=== PATIENT | male | born 1940 | race Caucasian/White ===

== ENCOUNTER 2022-11-02 01:20 | Emergency (ER) | payer MEDICARE ==
[~2022-11-02] VITALS: Ht 172.7 cm; Wt 71.6 kg
--- NOTE | 2022-11-02 01:54 | ED Respiratory ---
General Chief Complaint: Respiratory Problems Stated Complaint: RESP DISTRESS History of Present Illness Date Seen by Provider: Nov 02, 2022 Time Seen by Provider: 01:21 Initial Comments 82-year-old male with PMH of COPD/ex chronic smoker who stopped 20 years ago/CAD/CABG, is brought in by EMS with complaints of COPD exacerbation resulting in shortness of breath. Patient was given a DuoNeb by EMS and EMS and Solu-Medrol and his oxygen saturation improved from high 80s to 98%, also placed on 5 L of oxygen in the ambulance. Patient is not on home oxygen. Patient has had a few episodes of exacerbation of COPD in the past few months. Patient has also had a cough with runny nose and nasal congestion as per his over the past couple of weeks. Denies fever and chills, chest pain, palpitations, abdominal pain, nausea and vomiting. No known sick contacts. When pt first in ER, pt has breathlessness after speaking one sentence. Allergies and Home Medications Allergies Coded Allergies: No Known Drug Allergies (Unverified , 11/02/22) Patient Home Medication List Home Medication List Reviewed: Yes Review of Systems Review of Systems Constitutional: no symptoms reported EENTM: nose congestion Respiratory: cough, short of breath, wheezing Cardiovascular: no symptoms reported Gastrointestinal: no symptoms reported Genitourinary: no symptoms reported Musculoskeletal: no symptoms reported Skin: no symptoms reported Psychiatric/Neurological: No Symptoms Reported Hematologic/Lymphatic: No Symptoms Reported Immunological/Allergic: no symptoms reported Physical Exam Vital Signs - First Documented Capillary Refill : Height: '" Weight: lbs. oz. kg; BMI Method: General Appearance: mild distress HEENT: PERRL/EOMI, normal ENT inspection Neck: full range of motion, normal inspection Respiratory: chest non-tender, no accessory muscle use, decreased breath sounds (Initially in the upper lobes bilaterally. After treatment better air entry), rhonchi, wheezing, expiration Cardiovascular: regular rate, rhythm, no edema Gastrointestinal: normal bowel sounds, non tender, soft Neurologic/Psychiatric: alert, oriented x 3 Skin: normal color Progress/Results/Core Measures Suspected Sepsis SIRS Temperature: Pulse: Respiratory Rate: Laboratory Tests 11/02/22 01:25: White Blood Count 24.8H Blood Pressure / Mean: Laboratory Tests 11/02/22 01:25: Creatinine 1.01, INR Comment 0.9, Platelet Count 175, Total Bilirubin 0.7 Results/Orders Lab Results Laboratory Tests Test 11/02/22 01:25 11/02/22 01:36 Range/Units White Blood Count 24.8 H 4.3-11.0 10^3/uL Red Blood Count 4.80 4.30-5.52 10^6/uL Hemoglobin 15.8 13.3-17.7 g/dL Hematocrit 46 40-54 % Mean Corpuscular Volume 97 80-99 fL Mean Corpuscular Hemoglobin 33 25-34 pg Mean Corpuscular Hemoglobin Concent 34 32-36 g/dL Red Cell Distribution Width 14.0 10.0-14.5 % Platelet Count 175 130-400 10^3/uL Mean Platelet Volume 11.8 9.0-12.2 fL Immature Granulocyte % (Auto) 1 % Neutrophils (%) (Auto) 90 H 42-75 % Lymphocytes (%) (Auto) 4 L 12-44 % Monocytes (%) (Auto) 6 0-12 % Eosinophils (%) (Auto) 0 0-10 % Basophils (%) (Auto) 0 0-10 % Neutrophils # (Auto) 22.3 H 1.8-7.8 10^3/uL Lymphocytes # (Auto) 0.9 L 1.0-4.0 10^3/uL Monocytes # (Auto) 1.4 H 0.0-1.0 10^3/uL Eosinophils # (Auto) 0.0 0.0-0.3 10^3/uL Basophils # (Auto) 0.0 0.0-0.1 10^3/uL Immature Granulocyte # (Auto) 0.1 0.0-0.1 10^3/uL Neutrophils % (Manual) 75 % Lymphocytes % (Manual) 3 % Monocytes % (Manual) 3 % Metamyelocytes % 1 % Band Neutrophils 18 % Platelet Estimate NORMAL Blood Morphology Comment NORMAL Prothrombin Time 12.9 12.2-14.7 SEC INR Comment 0.9 0.8-1.4 Activated Partial Thromboplast Time 27 24-35 SEC D-Dimer 0.39 0.00-0.49 UG/ML Sodium Level 139 135-145 MMOL/L Potassium Level 5.4 H 3.6-5.0 MMOL/L Chloride Level 100 98-107 MMOL/L Carbon Dioxide Level 27 21-32 MMOL/L Anion Gap 12 5-14 MMOL/L Blood Urea Nitrogen 18 7-18 MG/DL Creatinine 1.01 0.60-1.30 MG/DL Estimat Glomerular Filtration Rate 75 BUN/Creatinine Ratio 18 Glucose Level 153 H 70-105 MG/DL Calcium Level 10.0 8.5-10.1 MG/DL Corrected Calcium 9.7 8.5-10.1 MG/DL Magnesium Level 1.9 1.6-2.4 MG/DL Total Bilirubin 0.7 0.1-1.0 MG/DL Aspartate Amino Transf (AST/SGOT) 46 H 5-34 U/L Alanine Aminotransferase (ALT/SGPT) 23 0-55 U/L Alkaline Phosphatase 31 L 40-136 U/L Troponin I < 0.30 <0.30 NG/ML Pro-B-Type Natriuretic Peptide 287.9 <450.0 PG/ML Total Protein 7.8 6.4-8.2 GM/DL Albumin 4.4 3.2-4.5 GM/DL Influenza Type A (RT-PCR) Not Detected Not Detecte Influenza Type B (RT-PCR) Not Detected Not Detecte SARS-CoV-2 RNA (RT-PCR) Not Detected Not Detecte My Orders Orders - NASIMA KUO MD Chest 1 View Ap/Pa Only (11/02/22 01:56) Lorazepam Injection (Ativan Injection) (11/02/22 01:57) Cbc With Automated Diff (11/02/22 02:00) Comprehensive Metabolic Panel (11/02/22 02:00) Fibrin Degradation Products (11/02/22 02:00) Protime With Inr (11/02/22 02:00) Partial Thromboplastin Time (11/02/22 02:00) Probnp Fs (11/02/22 02:00) Troponin I Fs (11/02/22 02:00) Covid 19 Inhouse Test (11/02/22 02:01) Influenza A And B By Pcr (11/02/22 02:01) Magnesium (11/02/22 02:02) Albuterol/Ipra Inhalation Soln (Duoneb I (11/02/22 02:15) Svn Small Volume Nebulizer (11/02/22 02:02) Albuterol/Ipra Inhalation Soln (Duoneb I (11/02/22 02:15) Svn Small Volume Nebulizer (11/02/22 02:12) Manual Differential (11/02/22 01:25) Azithromycin Injection (Zithromax Inject (11/02/22 02:45) Albuterol/Ipra Inhalation Soln (Duoneb I (11/02/22 03:15) Svn Small Volume Nebulizer (11/02/22 03:07) Albuterol/Ipra Inhalation Soln (Duoneb I (11/02/22 08:00) Ceftriaxone 1 Gm Pre-Mix (Rocephin 1 Gm (11/02/22 04:01) Svn Small Volume Nebulizer (11/02/22 04:01) Albuterol/Ipra Inhalation Soln (Duoneb I (11/02/22 06:47) Lorazepam Injection (Ativan Injection) (11/02/22 07:00) Lorazepam Injection (Ativan Injection) (11/02/22 06:56) Medications Given in ED Vital Signs/I&O 11/02/22 11/02/22 11/02/22 11/02/22 01:20 01:20 01:20 01:33 Temp 37.1 Pulse 123 Resp 36 B/P (MAP) 205/118 (147) Pulse Ox 98 98 98 O2 Delivery Nasal Cannula Nasal Cannula Nasal Cannula Nasal Cannula O2 Flow Rate 5.00 3.00 2.00 3.00 11/02/22 11/02/22 11/02/22 11/02/22 01:43 02:00 06:59 07:24 Pulse 108 B/P (MAP) 167/84 Pulse Ox 98 92 O2 Delivery Nasal Cannula Nasal Cannula Nasal Cannula Nasal Cannula O2 Flow Rate 3.00 2.00 3.00 Capillary Refill : Progress Note : Progress Note 1. ACUTE COPD EXACERBATION: - CXR: no acute findings - COVID Test/ Rapid Flu test negative - CBC: WBC of 24.8 with a left shift - CMP: s. K is 5.4 - D-dimer: normal - Duo Neb x 4 (one treatment given in ambulance) - Solumedrol 125mg iv given in ambulance - Azithro 500mg iv STAT - After treatments, O2 was decreased from 5L to 2mL, with pt maintaining O2 saturation of 93% - Pt is much improved and able to speak in clear sentences without drop in O2 saturation - There are no beds available in [facility]. Called [facility] for transfer, and discussed with hospitalist. Accepted to [facility]. - Added Ceftriaxone 1gm iv as well - EMS will only take pt after 8 AM, so scheduled duo neb treatments in ER until then Diagnostic Imaging Diagonstic Imaging: Xray Plain Films/CT/US/NM/MRI: chest Comments [facility]. [place], [place] NAME: KOFI BERNARDO [facility] REC#: [id number] PT STATUS: DEP ER : 1940 PHYSICIAN: NASIMA KUO MD ADMIT DATE: 11/02/22/ER FS Signed Date of Exam:11/02/22 CHEST 1 VIEW AP/PA ONLY INDICATION: COPD SOB. TECHNIQUE: Single view chest 1:57 AM. CORRELATION STUDY: None FINDINGS: Poststernotomy with sternal wires and coronary artery marker rings. Heart size, mediastinum, and vasculature within normal limits. Mildly prominent interstitial markings within both lung ramirez. No infiltrate, effusion or pneumothorax. IMPRESSION: 1. Postoperative chest demonstrates no acute abnormality. Dictated by: Dictated on workstation # [id number] Dict: 11/02/22 0634 Trans: 11/02/22 0906 AUGUSTIN [id number] Interpreted by: MARCELA HERNANDEZ DO Electronically signed by: MARCELA HERNANDEZ DO 11/02/22 0906 Departure Communication (Admissions) Time/Spoke to Admitting Phy: 03:[address] Cross, and accepted for admission to [facility] Impression Primary Impression: Acute exacerbation of chronic obstructive pulmonary disease (COPD) Disposition: XFER SHT-TRM HOSP Condition: Improved Admissions Decision to Admit Reason: Admit from ER (General) Decision to Admit/Date: Nov 02, 2022 Time/Decision to Admit Time: 02:00 Transfer Transfer Reason: Exceeds level of care Time Spoke to Accepting Phy: 03:00 Transfer Progress Notes Discussed with Dr. Cross at [facility] and accepted for admission Transfer Facility: [facility] Method of Transfer: EMS NASIMA KUO MD Nov 02, 2022 01:54
[2022-11-02] MEDS ORDERED: LORazepam INJ 2 MG/ML (ATIVAN) VIAL IVP STA (01:57)
[2022-11-02] MEDS ORDERED: RT-ALBUTEROL/IPRATROPIUM 3 ML (DUONEB) VIAL INH ONE ×3 (02:15→03:15)
[2022-11-02 02:16] LABS: BASOPHILS % (AUTO) 0 % (0-10); EOSINOPHILS % (AUTO) 0 % (0-10); HEMATOCRIT 46 % (40-54); HEMOGLOBIN 15.8 g/dL (13.3-17.7); LYMPHOCYTES # (AUTO) 0.9 10^3/uL (1.0-4.0); LYMPHOCYTES % (AUTO) 4 % (12-44); MEAN CORPUSCULAR HEMOGLOBIN 33 pg (25-34); MEAN CORPUSCULAR HGB CONC 34 g/dL (32-36); MEAN CORPUSCULAR VOLUME 97 fL (80-99); MEAN PLATELET VOLUME 11.8 fL (9.0-12.2); MONOCYTES # (AUTO) 1.4 10^3/uL (0.0-1.0); MONOCYTES % (AUTO) 6 % (0-12); NEUTROPHILS # (AUTO) 22.3 10^3/uL (1.8-7.8); NEUTROPHILS % (AUTO) 90 % (42-75); PLATELET COUNT 175 10^3/uL (130-400); WHITE BLOOD COUNT 24.8 10^3/uL (4.3-11.0)
[2022-11-02 02:30] LABS: BAND NEUTROPHILS 18 %; LYMPHOCYTES % (MANUAL) 3 %; METAMYELOCYTES % 1 %; MONOCYTES % (MANUAL) 3 %; NEUTROPHILS % (MANUAL) 75 %
[2022-11-02 02:31] LABS: PLATELET ESTIMATE NORMAL; RBC MORPH NORMAL
[2022-11-02 02:34] LABS: SODIUM 139 MMOL/L (135-145)
[2022-11-02 02:35] LABS: ALKALINE PHOSPHATASE 31 U/L (40-136); BILIRUBIN,TOTAL 0.7 MG/DL (0.1-1.0); BUN/CREATININE RATIO 18; CARBON DIOXIDE 27 MMOL/L (21-32); CHLORIDE 100 MMOL/L (98-107); CREATININE SERUM 1.01 MG/DL (0.60-1.30); GFR ESTIMATED 75; GLUCOSE 153 MG/DL (70-105); MAGNESIUM 1.9 MG/DL (1.6-2.4); POTASSIUM 5.4 MMOL/L (3.6-5.0)
[2022-11-02 02:36] LABS: ALANINE AMINOTRANSFERASE 23 U/L (0-55); ALBUMIN 4.4 GM/DL (3.2-4.5); TOTAL PROTEIN 7.8 GM/DL (6.4-8.2)
[2022-11-02 02:38] LABS: FIBRIN DEGRADATION PRODUCTS 0.39 UG/ML (0.00-0.49); INR 0.9 (0.8-1.4); PROTHROMBIN TIME PATIENT 12.9 SEC (12.2-14.7)
[2022-11-02] MEDS ORDERED: AZITHROMYCIN INJECTION 500 MG in NS (IVPB) 250 ML IV ONE (02:45)
[2022-11-02] MEDS ORDERED: cefTRIAXone 1 GM PRE-MIX 50 ML IV STA (04:01)
[2022-11-02] MEDS ORDERED: RT-ALBUTEROL/IPRATROPIUM 3 ML (DUONEB) VIAL ONE (06:47)
[2022-11-02] MEDS ORDERED: LORazepam INJ 2 MG/ML (ATIVAN) VIAL ONE (06:56)
--- NOTE | 2022-11-02 06:57 | Diagnostic Imaging Report ---
INDICATION: COPD SOB. TECHNIQUE: Single view chest 1:57 AM. CORRELATION STUDY: None FINDINGS: Poststernotomy with sternal wires and coronary artery marker rings. Heart size, mediastinum, and vasculature within normal limits. Mildly prominent interstitial markings within both lung ramirez. No infiltrate, effusion or pneumothorax. IMPRESSION: 1. Postoperative chest demonstrates no acute abnormality. Dictated by: Dictated on workstation # [id number]
[2022-11-02] MEDS ORDERED: LORazepam INJ 2 MG/ML (ATIVAN) VIAL IVP PRN (07:00)
[2022-11-02 07:24] VITALS: BP 167/84
[2022-11-02] MEDS ORDERED: RT-ALBUTEROL/IPRATROPIUM 3 ML (DUONEB) VIAL INH SCH (08:00)
== END 2022-11-02 07:42 | disposition short-term general hospital (02) ==
LOC: ER FS 01:20 → EDUNIT# 01:20 → ER FS 07:42
DX: J44.1 Chronic obstructive pulmonary disease with (acute) exacerbation (principal); Z87.891 Personal history of nicotine dependence; Z20.822 Contact with and (suspected) exposure to COVID-19; Z28.310 Unvaccinated for COVID-19
CPT/HCPCS: 36415; 71045; 80053; 83735; 83880; 84484; 85007; 85027; 85379; 85610; 85730; 87636; 94640

== ENCOUNTER → 2022-12-14 | Outpatient (CLI) | payer MEDICARE ==
--- NOTE | 2022-12-14 12:05 | Diagnostic Imaging Report ---
EXAMINATION: CT chest without contrast. TECHNIQUE: Multiple contiguous axial images were obtained through the chest without the use of intravenous contrast. All CT scans use one or more of the following dose optimizing techniques: automated exposure control, MA and/or KvP adjustment based on patient size and exam type or iterative reconstruction. HISTORY: COPD. COMPARISON: 11/02/2022. FINDINGS: The heart size is within normal limits with post CABG changes. No pericardial effusion is present. There is scattered calcified aortic and coronary atherosclerotic plaque. There is no mediastinal, hilar, or axillary lymphadenopathy. Calcified mediastinal and left hilar lymph nodes are noted. Lung volumes are hyperinflated. Emphysema is seen, greatest in the lung apices. 2 focal areas of hazy opacity are seen in the right upper lobe measuring 1.4 cm and 0.7 cm. No solid mass. Subsegmental atelectasis is seen in the left lung base. There are no focal areas of consolidation. No central endobronchial obstructing lesions are identified. There is no pleural effusion or pneumothorax. The osseous structures demonstrate no acute abnormalities. Limited views of the upper abdominal structures demonstrate no acute abnormalities. Small proteinaceous cyst is seen off the left kidney. Both adrenal glands are unremarkable. IMPRESSION: 1. Focal areas of hazy opacities in the right upper lobe, most likely representing areas of inflammatory/infectious process. However, given the background emphysema follow-up in 3-6 months is recommended to ensure resolution or stability. 2. Calcified mediastinal and left hilar lymph nodes representing prior granulomatous disease. Dictated by: Dictated on workstation # [id number]
== END ==
LOC: RAD FS 08:14
PROVIDERS: ATTEND Nurse Practitioner Family
DX: J44.1 Chronic obstructive pulmonary disease with (acute) exacerbation (principal); Z87.891 Personal history of nicotine dependence
CPT/HCPCS: 71250

== ENCOUNTER → 2022-12-15 | Outpatient (CLI) | payer MEDICARE ==
[~2022-12-15] MED LIST: RT-ALBUTEROL SULF 2.5 MG/3 ML PRE-MIX VIAL INH ONE
== END ==
LOC: RT 09:49
PROVIDERS: ATTEND Nurse Practitioner Family
DX: J44.9 Chronic obstructive pulmonary disease, unspecified (principal)
CPT/HCPCS: 94060; 94726; 94729

== ENCOUNTER 2022-12-29 12:41 | Emergency (ER) | payer MEDICARE ==
[~2022-12-29] VITALS: Ht 172.7 cm; Wt 66.2 kg
[2022-12-29] MEDS ORDERED: TETANUS,DIPTH,PERTUSS P/F (BOOSTRIX) 0.5 ML VIAL IM ONE (13:15)
[2022-12-29] MEDS ORDERED: BSS 15 ML IR ONE (13:15)
[2022-12-29] MEDS ORDERED: TETRACAINE 0.5% OPHTH SOLN 4 ML BTL (SINGLE DOSE ONLY) OU ONE (13:15)
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
--- NOTE | 2022-12-29 13:33 | Diagnostic Imaging Report ---
PROCEDURE: CT head, face, and cervical spine without contrast. TECHNIQUE: Multiple contiguous axial images were obtained through the head, neck, and facial bones without the use of intravenous contrast. Sagittal and coronal reformations through the cervical spine and facial bones were also performed. Auto Exposure Controls were utilized during the CT exam to meet ALARA standards for radiation dose reduction. INDICATION: A left-sided numbness after fall, face pain. COMPARISON: None. FINDINGS: No acute cranial hemorrhage. The carrillo-white matter differentiation is preserved. The ventricles and cortical sulci are normal. No midline shift or mass effect. No intracranial mass or fluid collection. The subarachnoid cisterns are maintained. Mucosal thickening within the left maxillary sinus. The mastoids are clear. The skull is intact. The globes and orbits are normal. The nasal bone is intact. The nasal septum is intact. There is leftward deviation of the nasal septum. The maxilla, zygomatic arch, mandible, pterygoid plates, and globes and orbits are intact. The lamina papyracea is intact. No orbital floor fracture. IMPRESSION: No acute intracranial hemorrhage. No large vascular territory haney-white loss. No intracranial mass, midline shift, or hydrocephalus. No facial fracture. Dictated by: Dictated on workstation # [id number]
--- NOTE | 2022-12-29 13:48 | Diagnostic Imaging Report ---
INDICATION: Left shoulder pain. AP, oblique, and transscapular views of the left shoulder are obtained. No fracture or acute bony abnormality is seen. Glenohumeral joint and AC joint appear in good alignment with moderate degenerative changes. IMPRESSION: Degenerative changes of left shoulder with no acute fracture or dislocation. Dictated by: Dictated on workstation # [id number]
--- NOTE | 2022-12-29 13:58 | Diagnostic Imaging Report ---
INDICATION: Left forearm pain, post fall. AP and lateral views of the left forearm are obtained. No fracture or acute bone abnormality is seen. IMPRESSION: Negative left forearm. Dictated by: Dictated on workstation # [id number]
[2022-12-29] MEDS ORDERED: ACETAMINOPHEN 500 MG TAB (TYLENOL) PO ONE (14:30)
[2022-12-29] MEDS ORDERED: IBUPROFEN TABLET 200 MG TAB PO ONE (14:30)
[2022-12-29] MEDS ORDERED: CEPH500T PO (14:31)
[2022-12-29 14:49] VITALS: BP 133/65
== END 2022-12-29 14:49 | disposition home or self-care (01) ==
LOC: EDUNIT# 12:41 → ER FS 12:42
DX: S61.412A Laceration without foreign body of left hand, initial encounter (principal); S00.252A Superficial foreign body of left eyelid and periocular area, initial encounter; S00.83XA Contusion of other part of head, initial encounter; S40.212A Abrasion of left shoulder, initial encounter; S59.912A Unspecified injury of left forearm, initial encounter; Z79.82 Long term (current) use of aspirin; Z23 Encounter for immunization; W18.30XA Fall on same level, unspecified, initial encounter; W22.8XXA Striking against or struck by other objects, initial encounter
CPT/HCPCS: 70450; 70486; 72125; 73030; 90715